=== PATIENT | male | born 1950 | race Caucasian/White ===

== ENCOUNTER 2020-05-04 12:48 | Emergency (ER) | payer OTHER, MEDICARE ==
[~2020-05-04] VITALS: Ht 172.7 cm; Wt 114.2 kg
[~2020-05-04 12:48] MED LIST: ALLO100T PO; ATOR80TA PO; CITA20TA28 PO; LISI-222 PO; OMEG1CAP46 PO; ZOLP10TA5 PO
[2020-05-04] MEDS ORDERED: LIDOcaine 1% W/epiNEPHrine 1:200,000 10ml vial IJ ONE (13:40)
[2020-05-04] MEDS ORDERED: TETanus/Pertussis (Acell)/Diphther VAC/PF (Tdap-Adult) 0.5ml syringe IMVAC ONE (13:40)
[2020-05-04 15:23] VITALS: BP 115/68
== END 2020-05-04 15:27 | disposition home or self-care (01) ==
LOC: ER 12:48
DX: S61.210A Laceration without foreign body of right index finger without damage to nail, initial encounter (principal); I48.91 Unspecified atrial fibrillation; E78.00 Pure hypercholesterolemia, unspecified; E11.9 Type 2 diabetes mellitus without complications; Z72.89 Other problems related to lifestyle; Z88.0 Allergy status to penicillin; Z88.5 Allergy status to narcotic agent; Z79.899 Other long term (current) drug therapy; W26.0XXA Contact with knife, initial encounter; Y93.89 Activity, other specified; Y92.89 Other specified places as the place of occurrence of the external cause; Y99.8 Other external cause status
CPT/HCPCS: 12001; 90471; 90715; 99283

== ENCOUNTER 2020-05-10 09:33 | Emergency (ER) | payer OTHER, MEDICARE ==
[~2020-05-10] VITALS: Ht 172.7 cm; Wt 110.0 kg
[2020-05-10 10:11] VITALS: BP 103/49
== END 2020-05-10 10:10 | disposition home or self-care (01) ==
LOC: ER 09:33
DX: S61.210D Laceration without foreign body of right index finger without damage to nail, subsequent encounter (principal); I48.91 Unspecified atrial fibrillation; E78.00 Pure hypercholesterolemia, unspecified; E11.9 Type 2 diabetes mellitus without complications; Z72.89 Other problems related to lifestyle; Z48.02 Encounter for removal of sutures; Z88.0 Allergy status to penicillin; Z88.5 Allergy status to narcotic agent; Z79.899 Other long term (current) drug therapy; X58.XXXD Exposure to other specified factors, subsequent encounter
CPT/HCPCS: 99281

== ENCOUNTER 2024-07-18 10:13 | Day surgery (SDC) | payer OTHER, MEDICARE ==
[2024-07-18] VITALS (14 sets, daily range): BP systolic 86–115; BP diastolic 45–74; PULSE 65–87; RESP 10–18; TEMP 97.8; O2SAT 94–98
[~2024-07-18] VITALS: Ht 172.7 cm; Wt 92.0 kg
[~2024-07-18 10:13] MED LIST changes: +ACET-1025 PO; +APIX5TAB3 PO; -ATOR80TA PO; +CHOL10005 PO; -CITA20TA28 PO; +CYAN500T46 PO; +DICL20GE TOP; +EMPA1TAB9 PO; +EZET10TA48 PO; +FLO0.4C PO; +GABA-530 PO; +INSU100C4 SQ; +INSU300I SQ; +ISOS30TA84 PO; +LIDO700A47 TOP; +NITR0.4T48 SL; -OMEG1CAP46 PO; +ROSU40TA71 PO; +SEMA1PEN3 SUBCUT; +TRAZ-251 PO; -ZOLP10TA5 PO
[2024-07-18 10:58] LABS: BASOPHILS # (AUTO) 0.1 X10'3 (0-0.2); BASOPHILS % (AUTO) 0.6 % (0-1); EOSINOPHILS # (AUTO) 0.2 X10'3 (0-0.9); HEMATOCRIT 44.4 % (42.0-52.0); HEMOGLOBIN 14.5 g/dl (14.0-17.9); LYMPHOCYTES # (AUTO) 1.3 X10'3 (1.1-4.8); MEAN CORPUSCULAR HEMOGLOBIN 29.6 PG (27.0-31.0); MEAN CORPUSCULAR HGB CONC 32.6 g/dL (33.0-36.5); MONOCYTES # (AUTO) 0.8 X10'3 (0-0.9); MONOCYTES % (AUTO) 9.5 % (2-12); NEUTROPHILS # (AUTO) 5.9 X10'3 (1.8-7.7); NEUTROPHILS % (AUTO) 71.9 % (42-75); PLATELET COUNT 236 X10'3 (140-440); RED BLOOD COUNT 4.88 X10'6 (4.70-6.10); RED CELL DISTRIBUTION WIDTH 14.2 % (11.5-14.5); WHITE BLOOD COUNT 8.2 X10'3 (4.5-11.0)
[2024-07-18] MEDS ORDERED: normal saline 1000ml 1,000 ML IV SCH (11:10)
[2024-07-18 11:14] LABS: ALBUMIN 3.5 G/DL (3.4-5.0); ANION GAP 8 (8-16); BLOOD UREA NITROGEN 22 MG/DL (7-18); BUN/CREATININE RATIO 16.5 (10.0-20.0); CALCIUM 9.1 MG/DL (8.5-10.1); CHLORIDE 106 MMOL/L (99-107); CREATININE 1.33 MG/DL (0.60-1.10); GLUCOSE 144 MG/DL (70-104); POTASSIUM 4.5 MMOL/L (3.5-5.1); SODIUM 139 MMOL/L (135-145); TOTAL CARBON DIOXIDE 25.4 MMOL/L (24-32); eCRCL 46 ML/MIN; eGFR 52 ML/MIN
[2024-07-18 11:15] LABS: APTT 26 SECONDS (22-32); INR 1.1 INR; PROTHROMBIN TIME 11.4 SECONDS (9.0-12.0)
[2024-07-18] MEDS: MIDAZolam 1mg/ml 10ml vial IV ONE (13:57)
[2024-07-18] MEDS: fentaNYL/PF 50MCG/1 ML 2ML syringe IV ONE (13:58)
== END 2024-07-18 15:30 | disposition home or self-care (01) ==
LOC: SSTAY O 10:13
PROVIDERS: ATTEND Student in an Organized Health Care Education/Training Program
DX: I48.91 Unspecified atrial fibrillation (principal); I11.0 Hypertensive heart disease with heart failure; I50.9 Heart failure, unspecified; E11.9 Type 2 diabetes mellitus without complications; I25.10 Atherosclerotic heart disease of native coronary artery without angina pectoris; E78.5 Hyperlipidemia, unspecified; J44.9 Chronic obstructive pulmonary disease, unspecified; G47.33 Obstructive sleep apnea (adult) (pediatric); Z79.01 Long term (current) use of anticoagulants; Z79.2 Long term (current) use of antibiotics; Z79.4 Long term (current) use of insulin; Z79.899 Other long term (current) drug therapy; Z79.82 Long term (current) use of aspirin; Z95.818 Presence of other cardiac implants and grafts; Z98.41 Cataract extraction status, right eye; Z98.42 Cataract extraction status, left eye; Z98.890 Other specified postprocedural states; Z88.0 Allergy status to penicillin; Z83.3 Family history of diabetes mellitus; Z80.9 Family history of malignant neoplasm, unspecified
CPT/HCPCS: 36415; 80048; 85025; 85610; 85730; 93312; 93325; 94760; J2250; J3010; J7030